=== PATIENT | female | born 1980 | race Caucasian/White ===

== ENCOUNTER 2020-07-24 20:48 | Emergency (ER) | payer OTHER ==
[~2020-07-24] VITALS: Ht 170.2 cm; Wt 90.7 kg
[2020-07-24] MEDS ORDERED: TRAZODONE HCL50 MG PO (20:56)
[2020-07-24] MEDS ORDERED: LEXAPRO 10 MG T10 M2 PO (20:57)
[2020-07-24 22:30] VITALS: BP 120/78
== END 2020-07-24 22:31 | disposition home or self-care (01) ==
LOC: M.ERS 20:48
DX: S52.335A Nondisplaced oblique fracture of shaft of left radius, initial encounter for closed fracture (principal); F10.920 Alcohol use, unspecified with intoxication, uncomplicated; Z79.899 Other long term (current) drug therapy; W03.XXXA Other fall on same level due to collision with another person, initial encounter; Y93.89 Activity, other specified; Y92.89 Other specified places as the place of occurrence of the external cause; Y99.8 Other external cause status